=== PATIENT | male | born 1975 | race Caucasian/White ===

== ENCOUNTER 2021-08-28 19:50 | Emergency (ER) | payer OTHER ==
[~2021-08-28] VITALS: Ht 182.9 cm; Wt 106.6 kg
[~2021-08-28 19:50] MED LIST: NORCO 5-325 TA1 EACH PO; ZOFRAN ODT4 MG SL
--- NOTE | 2021-08-28 23:53 | EKG ---
[facility] [address] [facility] [place], [place] [address] Signed Sinus tachycardia Brugada pattern, type 1 Abnormal ECG No previous ECGs available Confirmed by ARISTIDES OCHOA MD ([id number]) on 08/28/2021 11:53:37 PM Electronically Signed By: ARISTIDES OCHOA MD 08/28/21 2353 PATIENT NAME: MARTA PORTER Francheska Electrocardiogram DATE OF : 79 PHYSICIAN: ARISTIDES OCHOA MD REPORT #: [id number] REPORT IS CONFIDENTIAL AND NOT TO BE RELEASED WITHOUT AUTHORIZATION
[2021-08-29] MEDS ORDERED: LITHIUM CARBON300 M1 PO (00:34)
[2021-08-29] MEDS ORDERED: VENLAFAXINE HCL75 M1 PO (00:35)
[2021-08-29] MEDS ORDERED: PRAZOSIN HCL2 MG PO (00:36)
[2021-08-29] MEDS ORDERED: NEURONTIN600 MG PO (00:36)
[2021-08-29] MEDS ORDERED: LAMOTRIGINE OD200 MG PO (00:38)
[2021-08-29] MEDS ORDERED: MODAFINIL200 MG PO (00:39)
[2021-08-29] MEDS ORDERED: ONDANSETRON ODT8 MG PO (08:31)
--- NOTE | 2021-08-29 11:14 | EKG ---
[facility] [address] [facility] [place], [place] [address] Signed Normal sinus rhythm Normal ECG When compared with ECG of 28-AUG-2021 22:32, No significant change was found Confirmed by ARISTIDES OCHOA MD ([id number] on 08/29/2021 11:14:16 AM Electronically Signed By: ARISTIDES OCHOA MD 08/29/21 1114 PATIENT NAME: MARTA PORTER Electrocardiogram DATE OF : 79 PHYSICIAN: ARISTIDES OCHOA MD REPORT #: [id number] REPORT IS CONFIDENTIAL AND NOT TO BE RELEASED WITHOUT AUTHORIZATION
== END 2021-08-29 10:06 | disposition home or self-care (01) ==
LOC: ED 19:50
DX: A08.4 Viral intestinal infection, unspecified (principal); F90.9 Attention-deficit hyperactivity disorder, unspecified type; F17.200 Nicotine dependence, unspecified, uncomplicated; Z79.899 Other long term (current) drug therapy; Z20.822 Contact with and (suspected) exposure to COVID-19
CPT/HCPCS: 36415; 70450; 71045; 80048; 80053; 80178; 81001; 83605; 83690; 84443; 85025; 87502; 93005; 93010; A9270; G0480; J2060; J2405; J7030; U0003